=== PATIENT | male | born 1970 | race Caucasian/White ===

== ENCOUNTER 2016-08-03 15:25 | Emergency (ER) | payer OTHER ==
[2016-08-03 15:49] VITALS: BP 140/78
[2016-08-03] MEDS ORDERED: Diphtheria,Pertussis(Acell),Tetanus Vaccine 0.5 ML SDV inactive IM ONE (16:03)
[2016-08-03] MEDS ORDERED: Lidocaine 1% 50 ML MDV INJECT ONE (16:04)
--- NOTE | 2016-08-03 16:15 | EDM.PDOC ---
ED HPI Skin/Rash - General Chief Complaint: Laceration Stated Complaint: RT HAND LAC Time Seen by Provider: 08/03/16 16:26 Source: Reports: Patient History Limitations: Reports: No limitations - History of Present Illness INITIAL COMMENTS - FREE TEXT/NARRATIVE: Patient presents for evaluation and treatment a laceration to the right palm. Injury occurred prior to arrival in the ER. [place]. He states that a disc slipped and cut the right palm. He denies any numbness, tingling or decreased range of motion to the right hand. Patient is right-handed. Patient is unsure of his last tetanus. Location, Skin: Reports: upper extremity, right Treatments LIME SPREADER: Reports: Other (see below) Other Treatments LIME SPREADER: none - Related Data Allergies Allergy/AdvReac Type Severity Reaction Status Date / Time No Known Allergies Allergy Verified 08/03/16 15:52 Home Meds: Ambulatory Orders Medication Instructions Recorded Confirmed Acetaminophen/oxyCODONE [Percocet 1 tab PO BID 08/03/16 08/03/16 325-5 MG] amLODIPine [Norvasc] 0 mg PO DAILY 08/03/16 08/03/16 atorvaSTATin [Lipitor] 0 mg PO DAILY 08/03/16 08/03/16 Past Medical History Cardiovascular History: Reports: High cholesterol, Hypertension, Other (see below) Other Cardiovascular History: angiogram Musculoskeletal History: Reports: Back pain, chronic - Past Surgical History HEENT Surgical History: Reports: Tonsillectomy Social & Family History - Tobacco Use Smoking Status *Q: Current Every Day Smoker Years of Tobacco use: 1 Packs/Tins Daily: 1 - Caffeine Use Caffeine Use: Reports: Soda Other Caffeine Use: drinks pop all day - Recreational Drug Use Recreational Drug Use: No ED ROS GENERAL - Review of Systems Review Of Systems: See Below Skin: Reports: wound (right palm) Neurological: Denies: Numbness, Tingling ED EXAM, SKIN/RASH Exam: See Below Exam Limited By: No limitations General Appearance: alert, WD/WN, no apparent distress Respiratory/Chest: no respiratory distress, lungs clear, normal breath sounds Cardiovascular: normal peripheral pulses, regular rate, rhythm Peripheral Pulses: 2+: radial (R) Extremities: normal range of motion (Patient is able to make a fist, flex and extend all fingers, oppose fingers to thumb, Abduct and adduct fingers.), normal capillary refill Neurological: alert, oriented, normal cognition Psychiatric: normal affect, normal mood Skin: Warm, Dry, Wound/incision (4cm subcutaneous laceration to the right ventral proximal hand) Location, Skin: upper extremity, right Characteristics: linear ED SKIN PROCEDURES - Laceration/Wound Repair Right Proximal Ventral Hand Lac/wound length in cm: 4 Appearance: subcutaneous Distal NVT: neuro & vascular intact, no tendon injury Anesthetic type: local Local anesthesia - Lidocaine (Xylocaine): 1% plain Local anesthetic volume: 4cc Skin prep: saline, sterile drape, other (surclens) Exploration/Debridement/Repair: no foreign material found Closed with: sutures Suture size: other (5-0) # of sutures: 10 Suture type: nylon, interrupted, simple Sterile dressing applied: nurse Tetanus status addressed: Yes Complications: No Course - Vital Signs Last Recorded V/S: Last Vital Signs Temp 37.3 C 08/03/16 15:25 Pulse 93 08/03/16 15:25 Resp 20 08/03/16 15:25 BP 140/78 08/03/16 15:25 Pulse Ox 97 08/03/16 15:25 - Orders/Labs/Meds Orders: Active Orders 24 hr Category Date Time Status Vaccines to be Administered [RC] PER UNIT ROUTINE Care 08/03/16 16:03 Active Meds: Medications Discontinued Medications Generic Name Dose Route Start Last Admin Trade Name Loli PRN Reason Stop Dose Admin Diphtheria/Tetanus/Acell Pertussis 0.5 ml 08/03/16 16:03 08/03/16 16:13 Boostrix IM 08/03/16 16:04 0.5 ml .ONCE ONE Administration Lidocaine HCl 50 ml 08/03/16 16:04 08/03/16 16:15 Xylocaine 1% INJECT 08/03/16 16:05 50 ml ONETIME ONE Administration - Re-Assessments/Exams Free Text/Narrative Re-Assessment/Exam: 08/03/16 17:49 10 sutures were placed to the patient's right proximal, ventral palm. Patient tolerated the procedure well. There were no competitions. Wound dressed by nursing staff. Tetanus up dated. Discharge instructions as documented. Departure - Departure Time of Disposition: 17:45 Disposition: Home, Self-Care 01 Condition: good Clinical Impression: Laceration Instructions: Laceration Care, Adult Referrals: PCP,None [Primary Care Provider] - Forms: ED Department Discharge Additional Instructions: Tylenol or Motrin as needed for pain relief. With gentle soap and water twice a day . use antibacterial ointment x 3 days. . Keep the wound covered. Monitro for signs of infection such as increased swelling, redness or pus to present to the should these develop. Have the sutures removed in [address] [facility] open 8 AM to 5 PM Saturday to and will remove the sutures were free. please return to the ER for any problems questions or concerns. - My Orders Last 24 Hours: My Active Orders 08/03/16 16:03 Vaccines to be Administered [RC] PER UNIT ROUTINE - Assessment/Plan Last 24 Hours: My Active Orders 08/03/16 16:03 Vaccines to be Administered [RC] PER UNIT ROUTINE
== END 2016-08-03 17:55 | disposition home or self-care (01) ==
LOC: JD.ED 15:25
DX: S61.411A Laceration without foreign body of right hand, initial encounter (principal); Z79.899 Other long term (current) drug therapy; E78.00 Pure hypercholesterolemia, unspecified; I10 Essential (primary) hypertension; F17.210 Nicotine dependence, cigarettes, uncomplicated
CPT/HCPCS: 12002; 12032; 90471; 90715; 99282; 99283-25

== ENCOUNTER 2016-08-11 12:26 | Emergency (ER) | payer OTHER | END 2016-08-11 12:50 | LOC: JD.ED 12:26 ==